=== PATIENT | male | born 1955 | race Caucasian/White ===

== ENCOUNTER 2021-12-20 07:10 | Day surgery (SDC) | payer MEDICARE, MEDICAID ==
[2021-12-18 15:20] LABS: BASOPHILS # (AUTO) 0.1 X10'3 (0-0.2); BASOPHILS % (AUTO) 0.8 % (0-1); EOSINOPHILS # (AUTO) 0.1 X10'3 (0-0.9); EOSINOPHILS % (AUTO) 1.5 % (0-6); LYMPHOCYTES # (AUTO) 1.1 X10'3 (1.1-4.8); LYMPHOCYTES % (AUTO) 15.2 % (21-51); MEAN CORPUSCULAR HEMOGLOBIN 30.6 PG (27.0-31.0); MEAN CORPUSCULAR HGB CONC 34.5 g/dL (33.0-36.5); MEAN CORPUSCULAR VOLUME 88.6 FL (78-98); MEAN PLATELET VOLUME 6.6 FL (7.4-10.4); MONOCYTES % (AUTO) 13.6 % (2-12); NEUTROPHILS # (AUTO) 5.1 X10'3 (1.8-7.7); NEUTROPHILS % (AUTO) 68.9 % (42-75); PRE OP HEMATOCRIT 40.2 % (42.0-52.0); PRE OP HEMOGLOBIN 13.9 g/dL (14.0-17.9); PRE OP PLATELET COUNT 391 X10'3 (140-440); RED BLOOD COUNT 4.54 X10'6 (4.70-6.10); RED CELL DISTRIBUTION WIDTH 18.9 % (11.5-14.5)
[2021-12-18 15:38] LABS: ALBUMIN/GLOBULIN RATIO 0.7 (1.1-1.5); ALKALINE PHOSPHATASE 100 IU/L (46-116); BLOOD UREA NITROGEN 2 MG/DL (7-18); BUN/CREATININE RATIO 3.9 (5.4-32.0); CALCIUM 8.8 MG/DL (8.5-10.1); CHLORIDE 96 MMOL/L (99-107); CREATININE 0.51 MG/DL (0.60-1.10); PRE OP ALT 16 U/L (30-65); PRE OP ANION GAP 10 (8-16); PRE OP AST 26 U/L (10-37); PRE OP BILIRUB, TOTAL 0.8 MG/DL (0.0-1.0); PRE OP GLUCOSE 92 MG/DL (70-104); PRE OP SODIUM 135 MMOL/L (135-145); TOTAL CARBON DIOXIDE 29.1 MMOL/L (24-32); TOTAL PROTEIN 7.2 G/DL (6.4-8.2); eGFR > 90 ML/MIN
[2021-12-20] VITALS (13 sets, daily range): BP systolic 115–146; BP diastolic 70–86
[~2021-12-20] VITALS: Ht 182.9 cm; Wt 65.0 kg
[~2021-12-20 07:10] MED LIST: ZANTAC PO; ceFAZolin inj. 2,000 MG in dextrose 5%-water 100 ML IV ONE; famotidine 20mg tablet PO ONE; metoprolol tartrate 1mg/ml inj IV ONE; ringers solution, lacted 1,000 ML IV SCH
[2021-12-20] MEDS ORDERED: bacitracin 15gm ointment TP ONE (10:48)
[2021-12-20] MEDS ORDERED: sevoflurane 250ml liquid IH ONE (10:55)
[2021-12-20] MEDS ORDERED: ROPIVAcaine 0.5% (5mg/ml) 30ml vial ONE (11:02)
[2021-12-20] MEDS ORDERED: LIDOcaine 1%/PF 5ML 10 MG/ML VIAL ONE (11:31)
[2021-12-20] MEDS ORDERED: propofol inj 20 ML IV ONE (11:31)
[2021-12-20] MEDS ORDERED: dexamethasone sod phosphate 4mg/ml inj. ONE (11:32)
[2021-12-20] MEDS ORDERED: fentaNYL/PF 50MCG/1 ML 2ML syringe ONE ×2 (11:32→12:01)
[2021-12-20] MEDS ORDERED: ondansetron/PF 4mg/2ml inj ONE (11:32)
[2021-12-20] MEDS ORDERED: morphine 4 MG/ML inj SYRINge IV PRN (12:00)
[2021-12-20] MEDS ORDERED: morphine 2 MG/ML inj. syringe IV PRN (12:00)
[2021-12-20] MEDS ORDERED: ringers solution, lacted 1,000 ML IV SCH (12:00)
[2021-12-20] MEDS ORDERED: labetalol 20mg/4ml (5mg/ml) syringe IV PRN (12:00)
[2021-12-20] MEDS ORDERED: fentaNYL/PF 50MCG/1 ML 2ML syringe IV PRN ×2 (12:00)
[2021-12-20] MEDS ORDERED: hydrALAZINE 20mg/ml inj. IV PRN (12:00)
[2021-12-20] MEDS ORDERED: ondansetron/PF 4mg/2ml inj IV PRN (12:00)
[2021-12-20] MEDS ORDERED: midazolam 1 mg/ML 2ml injection ONE (12:01)
--- NOTE | 2021-12-20 13:04 | NUR ---
Received from OR via [facility] , accompanied by Anesthesiologist DR MENDEZ and report given by Anesthesiolgist. PT PRESENTS WITH 20G LEFT WRIST, DRSSING/CASTING ON RIGHT FOOT/ANKLE CDI. VSS. Addendum: 12/20/21 at 1315 by Ami Dow RN, RN Amended: Links added.
[2021-12-20] MEDS ORDERED: HYDROcodone/acetaminophen 10/325mg tab PO ONE (14:15)
--- NOTE | 2021-12-20 14:54 | NUR ---
PT HAS MET ALL DC REQUIREMENTS. IV DC'D WITH CATHETER INTACT. DR CHU CALLED REGARDING RX, HE WILL CALL RX INTO [facility]. DC INSTRUCTIONS REIVEWED WITHPT, PT VERBALIZED UNDERSTANDING WITH NO FURTHER QUESTIONS AT THIS TIME. PT GIVEN ICE PACK AND NEW CRUTCHES. PT WHEELED OUT IN WHEELCHAIR TO PRIVATE VEHICLE WHERE PT'S BROTHER WAS WAITING TO TAKE PT HOME. Addendum: 12/20/21 at 1550 by Ami Dow RN, RN Amended: Links added.
--- NOTE | 2021-12-20 14:54 | NUR ---
PT TOOK WALKING BOOT HOME. Addendum: 12/20/21 at 1552 by Ami Dow RN RN Amended: Links added.
== END 2021-12-20 14:54 | disposition home or self-care (01) ==
LOC: PAS 07:10
PROVIDERS: ATTEND Podiatrist Foot & Ankle Surgery
DX: S82.841A Displaced bimalleolar fracture of right lower leg, initial encounter for closed fracture (principal); S93.491A Sprain of other ligament of right ankle, initial encounter; S82.831A Other fracture of upper and lower end of right fibula, initial encounter for closed fracture; K21.9 Gastro-esophageal reflux disease without esophagitis; X58.XXXA Exposure to other specified factors, initial encounter; Y92.89 Other specified places as the place of occurrence of the external cause; Y93.89 Activity, other specified; Y99.8 Other external cause status; G89.18 Other acute postprocedural pain; Z79.899 Other long term (current) drug therapy; Z79.82 Long term (current) use of aspirin
CPT/HCPCS: 27695; 27814; 27829; 36415; 64445; 64447; 73590; 76942; 80053; 82948; 85025; 93005; A6223; C1713; J0690; J1100; J2250; J2405; J2704; J2795; J3010; J3490; J7030; J7060; J7120; Z7506; Z7508; Z7512; 76000; A4618; A6253; A6449; A7000